=== PATIENT | female | born 1960 | race Caucasian/White ===

== ENCOUNTER 2018-03-21 07:30 | Observation (INO) ==
[2018-03-21] MEDS ORDERED: *HR* HYDROcodone/Acet 5/325 mg TABLET PO ONE (07:48)
--- NOTE | 2018-03-21 07:52 | Emergency Department Note ---
Disposition Clinical Impression: Abnormal EKG Back pain Qualifiers: Back pain location: back pain in unspecified location Chronicity: acute Back pain laterality: unspecified Qualified Code(s): M54.9 - Dorsalgia, unspecified Chest pain Qualifiers: Chest pain type: unspecified Qualified Code(s): R07.9 - Chest pain, unspecified Disposition: Admitted As Inpatient Condition: Good Referrals: Demi Booker, [employer] [Primary Care Provider] - Forms: ED Satisfaction Letter Time of Disposition: 11:03 Back Pain HPI - General Chief Complaint: ED Back Pain/Injury Stated Complaint: Back Spasms Time Seen by Provider: 03/21/18 07:36 Source: patient Limitations: no limitations Nursing Notes Reviewed: Yes Vital Signs Reviewed: Yes - History of Present Illness HPI Narrative: Nontoxic-appearing 57-year-old female presents for evaluation of thoracic "back spasms" of the bilateral paraspinal musculature. This is been going on for several days. He in fact, she visited this facility on 03/17/10 however left prior to being seen due to prolonged wait times in the waiting room. She is experienced spasms in these locations on multiple occasions in the past. She denies any injury or trauma. She denies any fever, chills, numbness/tingling/ weakness of the extremities, chest pain, shortness of breath, or hemoptysis. She has taken ibuprofen and Tylenol [id number] without relief. She has also tried hot and cold therapies at home, again, without relief. Pt Subjective Complaint: other (Back spasms) Onset (ago): day(s) Duration: gradually worsening Location: thoracic spine Pain Severity: severe Pain Scale: 10 Quality: sharp Radiation: none Improves with: none Worsens with: movement, deep breaths/cough Associated symptoms: Denies: numbness, weakness, fever Treatments prior to arrival: cold therapy, heat therapy, NSAIDS, acetaminophen - Related Data Home Medications Medication Instructions Recorded Confirmed Etodolac [Etodolac] 500 mg PO BID PRN 03/21/18 03/21/18 Ibuprofen [Ibuprofen] 800 mg PO TID PRN 03/21/18 03/21/18 Metformin HCl [Glucophage] 1,000 mg PO BID PRN 03/21/18 03/21/18 Pantoprazole Sodium [Protonix] 40 mg PO DAILY 03/21/18 03/21/18 Terbinafine HCl 250 mg PO BID 03/21/18 03/21/18 Tizanidine HCl 4 mg PO TID 03/21/18 03/21/18 Allergies Allergy/AdvReac Type Severity Reaction Status Date / Time codeine AdvReac Itching Verified 03/21/18 10:11 All systems ED: reviewed and negative except as stated. Constitutional: Denies: fever, chills, weakness, weight change Eyes: Denies: eye pain, eye discharge, vision change ENT ED: Denies: ear pain, throat pain, dental pain, hearing loss, epistaxis, congestion, dysphagia Cardiovascular: Denies: chest pain, palpitations, dyspnea on exertion, edema, syncope Respiratory: Denies: cough, dyspnea, wheezes, hemoptysis, stridor Gastrointestinal: Denies: abdominal pain, nausea, vomiting, diarrhea, constipation, hematemesis, melena, hematochezia Genitourinary: Denies: dysuria, frequency, hematuria, discharge Musculoskeletal: Reports: as per HPI, back pain. Denies: neck pain, arthralgia , myalgia Integumentary: Denies: rash, abrasion, lesions Neurological: Denies: headache, weakness, numbness, paresthesias, confusion, abnormal gait, vertigo Psychiatric: Denies: anxiety, depression, suicidal thoughts, homicidal thoughts , auditory hallucinations, visual hallucinations Endocrine: Denies: fatigue Hematological/Lymphatic: Denies: easy bleeding, easy bruising Allergic/Immunologic: Denies: facial swelling, urticaria Past Medical History - Past Medical History Attestation: Yes The following information was validated with the patient. 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 Absent: nystagmus - ENT ENT exam: mucous membranes moist - Neck Neck exam: Present: normal inspection, full ROM, trachea midline. Absent: tenderness - Chest Chest inspection: Present: normal inspection, symmetric chest wall rise - Extremities Exam Extremities exam: Present: normal inspection, full ROM. Absent: tenderness, pedal edema - Back Exam Back exam: Present: tenderness (Tenderness with palpation of the bilateral thoracic paraspinal musculature), muscle spasm (Palpable spasm of the bilateral paraspinal musculature, thoracic region, left more severe than the right), paraspinal tenderness. Absent: vertebral tenderness - Neurological Exam Neurological exam: Present: alert, oriented X3, normal gait - Expanded Neurological Exam Motor strength - LUE: 5/5 Motor strength - RUE: 5/5 Motor strength - LLE: 5/5 Motor strength - RLE: 5/5 - Psychiatric Psychiatric exam: Present: normal affect, normal mood - Skin Skin exam: Present: warm, dry, intact, normal color. Absent: rash Course Course Narrative: The patient's complaints did seem musculoskeletal upon first examination however an EKG showed new T-wave inversions in leads V2 and V3 when compared to a previous EKG dated from October of this past year. Upon further questioning , the patient stated an exertional component to this thoracic back pain as well as intermittent episodes of nausea. Cardiac workup was initiated. She has a normal troponin. A nitroglycerin challenge revealed complete resolution of her pain after the administration of only a single sublingual nitroglycerin tablet. As such, I will consult with cardiology on-call. The patient will be admitted to the hospital service with cardiology consultation. 1030: I spoke with Dr. Vasquez, on-call cardiology. Dr. Vasquez states the cardiology will consult with the patient in house. He also recommends the administration of a heparin drip by ACS protocol. I discussed this plan with Dr. Sommers, ED attending. Dr. Sommers has had a [id number] evaluation with this patient and agrees with this plan. Dr. Sommers has spoken with Dr. Del Toro, hospitalist on-call who has accepted the patient for admission to the hospital service for further evaluation and ongoing cardiac consultation. - Reevaluation(s) Reevaluation #1: The patient states complete resolution of her thoracic "back spasms" after the administration of a single sublingual nitroglycerin tablet. Time: 10:11 Vital Signs Temperature 98.2 F 03/21/18 07:35 Pulse Rate 88 03/21/18 07:35 Respiratory Rate 12 03/21/18 07:35 Blood Pressure 155/82 03/21/18 07:35 O2 Sat by Pulse Oximetry 99 03/21/18 07:35 Temperature 98.2 F 03/21/18 07:47 Pulse Rate 61 03/21/18 10:21 Respiratory Rate 1 03/21/18 10:21 Blood Pressure 124/81 03/21/18 10:21 O2 Sat by Pulse Oximetry 100 03/21/18 10:21 Oxygen Delivery Oxygen Delivery Room Air Back Pain/Injury - Medical Records Medical records reviewed: Yes I reviewed the patient's medical records. - Lab Data Lab results reviewed: Yes I reviewed the patient's lab results. Lab results narrative: Laboratory Last Values WBC 11.6 K/mcL (4.3-11.1) H 03/21/18 09:11 RBC 4.56 M/mcL (3.82-4.97) 03/21/18 09:11 Hgb 15.1 g/dL (11.5-15.4) 03/21/18 09:11 Hct 42.4 % (35.3-44.9) 03/21/18 09:11 MCV 93.0 fL (83.0-100.0) 03/21/18 09:11 MCH 33.1 pg (28.0-33.3) 03/21/18 09:11 MCHC 35.6 g/dL (31.6-35.5) H 03/21/18 09:11 RDW 12.4 % (11.5-14.5) 03/21/18 09:11 Plt Count 235 K/mcL (140-400) 03/21/18 09:11 MPV 10.9 fL (9.4-12.4) 03/21/18 09:11 Immature Gran % 0.3 % (0-4) 03/21/18 09:11 Seg Neutrophils % 63.8 % 03/21/18 09:11 Lymphocytes % 27.3 % 03/21/18 09:11 Monocytes % 7.7 % 03/21/18 09:11 Eosinophils % 0.3 % 03/21/18 09:11 Basophils % 0.6 % 03/21/18 09:11 Neutrophils # 7.4 K/mcL (1.6-8.9) 03/21/18 09:11 Lymphocytes # 3.2 K/mcL (0.6-4.6) 03/21/18 09:11 Monocytes # 0.9 K/mcL (0.0-1.3) 03/21/18 09:11 Eosinophils # 0.0 K/mcL (0.0-0.6) 03/21/18 09:11 Basophils # 0.1 K/mcL (0.0-0.2) 03/21/18 09:11 PT 12.2 Seconds (9.4-12.1) H 03/21/18 09:11 INR 1.1 03/21/18 09:11 APTT 30.8 Seconds (26.0-36.0) 03/21/18 09:11 Sodium 142 mEq/L (136-145) 03/21/18 09:11 Potassium 3.0 mEq/L (3.5-5.1) L 03/21/18 09:11 Chloride 112 mEq/L (98-107) H 03/21/18 09:11 Carbon Dioxide 22 mEq/L (23-29) L 03/21/18 09:11 BUN 17 mg/dL (6-20) 03/21/18 09:11 Creatinine 0.84 mg/dL (0.60-1.20) 03/21/18 09:11 Est GFR ( Amer) > 60 (> 60) 03/21/18 09:11 Est GFR (Non-Af Amer) > 60 (> 60) 03/21/18 09:11 BUN/Creatinine Ratio 20 (6-26) 03/21/18 09:11 Glucose 123 mg/dL (70-105) H 03/21/18 09:11 Calculated Osmolality 297 (280-300) 03/21/18 09:11 Calcium 9.9 mg/dL (8.6-10.3) 03/21/18 09:11 Troponin I < 0.03 ng/mL (< 0.04) 03/21/18 09:11 Result diagrams: 03/21/18 09:11 03/21/18 09:11 Lab Results 03/21/18 03/21/18 03/21/18 Range/Units 09:11 09:11 09:11 WBC 11.6 H (4.3-11.1) K/mcL RBC 4.56 (3.82-4.97) M/mcL Hgb 15.1 (11.5-15.4) g/dL Hct 42.4 (35.3-44.9) % MCV 93.0 (83.0-100.0) fL MCH 33.1 (28.0-33.3) pg MCHC 35.6 H (31.6-35.5) g/dL RDW 12.4 (11.5-14.5) % Plt Count 235 (140-400) K/mcL MPV 10.9 (9.4-12.4) fL Immature Gran % 0.3 (0-4) % Seg Neutrophils % 63.8 % Lymphocytes % 27.3 % Monocytes % 7.7 % Eosinophils % 0.3 % Basophils % 0.6 % Neutrophils # 7.4 (1.6-8.9) K/mcL Lymphocytes # 3.2 (0.6-4.6) K/mcL Monocytes # 0.9 (0.0-1.3) K/mcL Eosinophils # 0.0 (0.0-0.6) K/mcL Basophils # 0.1 (0.0-0.2) K/mcL PT 12.2 H (9.4-12.1) Seconds INR 1.1 APTT 30.8 (26.0-36.0) Seconds Sodium 142 (136-145) mEq/L Potassium 3.0 L (3.5-5.1) mEq/L Chloride 112 H (98-107) mEq/L Carbon Dioxide 22 L (23-29) mEq/L BUN 17 (6-20) mg/dL Creatinine 0.84 (0.60-1.20) mg/dL Est GFR ( Amer) > 60 (> 60) Est GFR (Non-Af Amer) > 60 (> 60) BUN/Creatinine Ratio 20 (6-26) Glucose 123 H (70-105) mg/dL Calculated Osmolality 297 (280-300) Calcium 9.9 (8.6-10.3) mg/dL Troponin I < 0.03 (< 0.04) ng/mL - Radiology Data Radiology results reviewed: Yes I reviewed the patient's radiology results. Thoracic Spine X-Ray 03/21/18 07:48 IMPRESSION: 1. No acute abnormality involving the thoracic spine. D/ / Tj Kamara MD / Tj Kamara MD Interpreting Provider: Tj Kamara MD Chest X-Ray 03/21/18 09:11 IMPRESSION: No acute cardiopulmonary findings. D/ / Monica Luna MD / Monica Luna MD Interpreting Provider: Monica Luna MD - EKG Data EKG attestation: Yes I reviewed and interpreted this EKG. EKG results narrative: EKG reviewed by Dr. Sommers as well. EKG shows a sinus rhythm with sinus arrhythmia at a rate of 60 bpm. [place] interval 167, QRS duration 87, QT/QTc interval 4/424. No ectopy noted. No ST elevation. Inverted T waves noted in V2 and V3. These are new findings compared to the patient's most recent EKG dated from 11/05/17.
[2018-03-21] MEDS ORDERED: Nitroglycerin 0.4 MG TAB.SUBL SL PRN (09:32)
[2018-03-21 09:39] LABS: Basophils # 0.1 K/mcL (0.0-0.2); Basophils % 0.6 %; Eosinophils % 0.3 %; Hematocrit 42.4 % (35.3-44.9); Hemoglobin 15.1 g/dL (11.5-15.4); Immature Granulocytes % 0.3 % (0-4); Lymphocytes # 3.2 K/mcL (0.6-4.6); Lymphocytes % 27.3 %; Mean Corpuscular HGB Conc 35.6 g/dL (31.6-35.5); Mean Corpuscular Hemoglobin 33.1 pg (28.0-33.3); Mean Platelet Volume 10.9 fL (9.4-12.4); Monocytes # 0.9 K/mcL (0.0-1.3); Monocytes % 7.7 %; Neutrophils # 7.4 K/mcL (1.6-8.9); Platelet Count 235 K/mcL (140-400); Red Blood Count 4.56 M/mcL (3.82-4.97); Red Cell Distribution Width 12.4 % (11.5-14.5); Segmented Neutrophils % 63.8 %
--- NOTE | 2018-03-21 09:46 | Emergency Department Note ---
Disposition Clinical Impression: Abnormal EKG Back pain Qualifiers: Back pain location: back pain in unspecified location Chronicity: acute Back pain laterality: unspecified Qualified Code(s): M54.9 - Dorsalgia, unspecified Chest pain Qualifiers: Chest pain type: unspecified Qualified Code(s): R07.9 - Chest pain, unspecified Disposition: Admitted As Inpatient Condition: Good Referrals: Demi Booker CNP [Primary Care Provider] - Forms: ED Satisfaction Letter General Adult HPI - General Chief complaint: ED Back Pain/Injury Stated complaint: Back Spasms Time Seen by Provider: 03/21/18 07:36 Source: patient Limitations: no limitations - History of Present Illness Pain Scale: 10 - Related Data Home Medications Medication Instructions Recorded Confirmed metFORMIN [Glucophage] 1,000 mg PO BID 08/15/15 11/29/16 Previous Rx's Medication Instructions Recorded Benzonatate [Tessalon] 100 mg PO TID #30 capsule 08/15/15 Cyclobenzaprine [Flexeril] 10 mg PO TID #30 tablet 11/28/16 Naproxen [Naprosyn] 500 mg PO BID PRN #20 tablet 10/13/17 Cyclobenzaprine [Flexeril] 10 mg PO BID #30 tablet 11/05/17 HYDROcodone/Acet 5/325 mg [[place] 1 tab PO Q6H PRN 2 Days #6 tab 11/05/17 5-325 mg] Allergies Allergy/AdvReac Type Severity Reaction Status Date / Time codeine AdvReac Itching Verified 03/17/18 15:39 Constitutional: Denies: fever, chills, weakness, weight change Eyes: Denies: eye pain, eye discharge, vision change ENT ED: Denies: ear pain, throat pain, dental pain, hearing loss, epistaxis, congestion, dysphagia Cardiovascular: Denies: chest pain, palpitations, dyspnea on exertion, edema, syncope Respiratory: Denies: cough, dyspnea, wheezes, hemoptysis, stridor Gastrointestinal: Denies: abdominal pain, nausea, vomiting, diarrhea, constipation, hematemesis, melena, hematochezia Genitourinary: Denies: dysuria, frequency, hematuria, discharge Musculoskeletal: Reports: as per HPI, back pain. Denies: neck pain, arthralgia , myalgia Integumentary: Denies: rash, abrasion, lesions Neurological: Denies: headache, weakness, numbness, paresthesias, confusion, abnormal gait, vertigo Psychiatric: Denies: anxiety, depression, suicidal thoughts, homicidal thoughts , auditory hallucinations, visual hallucinations Endocrine: Denies: fatigue Hematological/Lymphatic: Denies: easy bleeding, easy bruising Allergic/Immunologic: Denies: facial swelling, urticaria Past Medical History - Past Medical History Medical history: Reports: diabetes, GERD, other Surgical history: Reports: non-contributory, , hysterectomy Psychiatric history: Reports: depression REMOTE INPATIENT 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 Patient complaining of left-sided midthoracic back pain which she describes as a dull ache. Patient's pain is worse with exertion. She does notice some tenderness to palpation worse with movements, however, she does describe worse with exertion. She does have associated nausea and has had an episode of vomiting with in the emergency department. EKG has concern for biphasic T-wave in V2 and V3 concerning for while and syndrome. Significant change from previous EKG. Patient will undergo further cardiac workup as well as received aspirin and nitroglycerin. Patient will be discussed with cardiology and admitted for further evaluation. Please see LINDA note for further evaluation. Vital Signs Temperature 98.2 F 03/21/18 07:35 Pulse Rate 88 03/21/18 07:35 Respiratory Rate 12 03/21/18 07:35 Blood Pressure 155/82 03/21/18 07:35 O2 Sat by Pulse Oximetry 99 03/21/18 07:35 Temperature 98.2 F 03/21/18 07:47 Pulse Rate 88 03/21/18 07:47 Respiratory Rate 12 03/21/18 07:47 Blood Pressure 155/82 03/21/18 07:47 O2 Sat by Pulse Oximetry 99 03/21/18 07:47 Oxygen Delivery Oxygen Delivery Room Air Medical Decision Making - Lab Data Result diagrams: 03/21/18 09:11 Lab Results 03/21/18 Range/Units 09:11 WBC 11.6 H (4.3-11.1) K/mcL RBC 4.56 (3.82-4.97) M/mcL Hgb 15.1 (11.5-15.4) g/dL Hct 42.4 (35.3-44.9) % MCV 93.0 (83.0-100.0) fL MCH 33.1 (28.0-33.3) pg MCHC 35.6 H (31.6-35.5) g/dL RDW 12.4 (11.5-14.5) % Plt Count 235 (140-400) K/mcL MPV 10.9 (9.4-12.4) fL Immature Gran % 0.3 (0-4) % Seg Neutrophils % 63.8 % Lymphocytes % 27.3 % Monocytes % 7.7 % Eosinophils % 0.3 % Basophils % 0.6 % Neutrophils # 7.4 (1.6-8.9) K/mcL Lymphocytes # 3.2 (0.6-4.6) K/mcL Monocytes # 0.9 (0.0-1.3) K/mcL Eosinophils # 0.0 (0.0-0.6) K/mcL Basophils # 0.1 (0.0-0.2) K/mcL
[2018-03-21] MEDS: Aspirin 81 MG TAB.CHEW PO STA ×2 (09:49→12:08)
[2018-03-21] MEDS: Ondansetron 4 MG/2 ML VIAL IVP ONE ×2 (09:49→12:08)
[2018-03-21 09:50] LABS: INR 1.1; Prothrombin Time 12.2 Seconds (9.4-12.1)
[2018-03-21 09:52] LABS: Activated Partial Thrombo Time 30.8 Seconds (26.0-36.0)
[2018-03-21 09:59] LABS: BUN/Creatinine Ratio 20 (6-26); Blood Urea Nitrogen 17 mg/dL (6-20); Calcium 9.9 mg/dL (8.6-10.3); Carbon Dioxide 22 mEq/L (23-29); Chloride 112 mEq/L (98-107); Glucose 123 mg/dL (70-105); Osmolality,Calculated 297 (280-300); Sodium 142 mEq/L (136-145); Troponin I < 0.03 ng/mL (< 0.04); eGFR For African Americans > 60 (> 60); eGFR For Non-African Americans > 60 (> 60)
[2018-03-21] MEDS: 0.9 % Sodium Chloride 1,000 ML IVC ONE ×2 (10:16→12:08)
[2018-03-21] MEDS ORDERED: *HR* Heparin 5,000 UNIT/ML VIAL IVP PRN ×2 (10:36)
[2018-03-21] MEDS ORDERED: *HR* Heparin 5,000 UNIT/ML VIAL IVP ONE (10:36)
[2018-03-21] MEDS: Heparin 25,000 UNIT/500 ML D5W 25,000 UNIT/500 ML BAG IVC SCH (11:03)
[2018-03-21] MEDS ORDERED: Acetaminophen 325 MG TABLET PO PRN (11:12)
[2018-03-21] MEDS ORDERED: Naloxone 0.4 MG/ML INJ IVP PRN (11:12)
[2018-03-21] MEDS ORDERED: *HR* HYDROcodone/Acet 5/325 mg TABLET PO PRN (11:12)
--- NOTE | 2018-03-21 11:12 | Internal Med History&Physical ---
Date of Encounter: 03/21/18 Time of Encounter: 11:11 Internal Medicine - H&P: HPI Chief complaint: Back pain Admitted From: Home Plans for Post Hospital Care: Home History of present illness: Ms. Costa is a 57 year old female with medical history of DM, chronic back pain who presented to the ER with complains of low back spasm, said to have been progressive, non-radiating. She denies hx of fall or trauma preceding these symptoms, while she was being worked up in the ER, EKG showed TWI inV2 and V3 new compared to prior EKG). Patient then endorsed hx of nausea and vomiting occasionally. She denies chest pain, SOB, she denies leg swelling, palpitations, dizziness, diaphoresis, she denies changes in bowel or urinary habits She has no neurologic symptoms, no skin rash Admiting trop was negative. ER consulted cardio who recommended heparin infusion Patient is clinically and hemodynamically stable as well as chest pain free at my time o eval She is placed on observation for ACS rule out-she has significant family hx in father , and she has risk factors being a diabetic and tobacco abuser She is full code Past Med Surg Social Fam HX - Past Medical History Medical history: diabetes, GERD, other Psychiatric history: depression - Past Surgical History Surgical History: non-contributory, , hysterectomy - Social History Smoking Status: Current every day smoker Smokeless Tobacco Status: No Alcohol use: none Drug use: none Internal Medicine - H&P: Meds Etodolac [Etodolac] 500 mg PO BID PRN 03/21/18 [History] Ibuprofen [Ibuprofen] 800 mg PO TID PRN 03/21/18 [History] Metformin HCl [Glucophage] 1,000 mg PO BID PRN 03/21/18 [History] Pantoprazole Sodium [Protonix] 40 mg PO DAILY 03/21/18 [History] Terbinafine HCl 250 mg PO BID 03/21/18 [History] Tizanidine HCl 4 mg PO TID 03/21/18 [History] 3 Allergy/AdvReac Type Severity Reaction Status Date / Time codeine AdvReac Itching Verified 03/21/18 10:11 All Systems PM: A 10-system review of systems was performed and is negative for pertinent findings except as documented above in the HPI. - Constitutional Constitutional: no chills, no fever(s), no night sweats - EENT Eyes: no change in vision, no discharge, no pain, no photophobia Ears: no ear discharge, no ear pain, no tinnitus Nose, mouth and throat: no dysphagia, no nasal discharge, no neck pain, no sore throat - Cardiovascular Cardiovascular ROS IM: as per HPI - Respiratory Respiratory: no cough, no dyspnea, no wheezing, no excessive phlegm production - Gastrointestinal Gastrointestinal: no abdominal pain, no diarrhea, no hematemesis, no hematochezia, no melena, no nausea, no vomiting - Genitourinary Genitourinary: no change in urinary stream, no dysuria, no flank pain, no hematuria - Musculoskeletal Musculoskeletal ROS IM: as per HPI, no numbness, no tingling - Integumentary Integumentary IM: no rash, no unusual bruising - Neurological Neurological ROS: no confusion, no convulsions, no focal weakness, no numbness, no tingling, no tremor(s) - Constitutional Vitals: Temp Pulse Resp BP Pulse Ox 98.2 F 61 1 124/81 100 03/21/18 07:47 03/21/18 10:21 03/21/18 10:21 03/21/18 10:21 03/21/18 10:21 General appearance: Present: A&O X 3, pleasant, no acute distress - Head Head exam: Present: atraumatic, normocephalic - Eye Eye exam: Present: PERRL, conjuntiva pink, sclera anicteric Pupils: Present: PERRL - Neck Neck exam general surgery: Present: supple, trachea midline. Absent: lymphadenopathy - Respiratory Respiratory exam: Present: CTAB. Absent: accessory muscle use, rales, rhonchi, wheezes - Cardiovascular Cardiovascular exam: Present: RRR, +S1, +S2. Absent: diastolic murmur, gallop, rubs, systolic murmur - GI/Abdominal GI/Abdominal exam: Present: normal bowel sounds, soft, no peritoneal signs. Absent: distended, tenderness - Extremities Exam Extremities exam: Present: warm, radial pulses palpable and symmetrical. Absent : calf tenderness, cyanotic, pedal edema - Neurological Exam Neurological exam: Present: alert, CN II-XII intact, oriented X3, no focal deficits. Absent: pronater drift, facial droop, speech deficit - Skin Skin exam: Present: dry, intact Internal Med - H&P Results - Labs CBC & Chem 7: 03/21/18 09:11 03/21/18 09:11 Labs: Short CBC 03/21/18 Range/Units 09:11 WBC 11.6 H (4.3-11.1) K/mcL Hgb 15.1 (11.5-15.4) g/dL Hct 42.4 (35.3-44.9) % Plt Count 235 (140-400) K/mcL Neutrophils # 7.4 (1.6-8.9) K/mcL BMP 03/21/18 09:11 Sodium 142 Potassium 3.0 L Chloride 112 H Carbon Dioxide 22 L BUN 17 Creatinine 0.84 Glucose 123 H Calcium 9.9 Cardiac Enzymes 03/21/18 Range/Units 09:11 Troponin I < 0.03 (< 0.04) ng/mL - Impressions ITS Impressions Thoracic Spine X-Ray 03/21/18 07:48 IMPRESSION: 1. No acute abnormality involving the thoracic spine. D/ / Tj Kamara MD / Tj Kamara MD Interpreting Provider: Tj Kamara MD Chest X-Ray 03/21/18 09:11 IMPRESSION: No acute cardiopulmonary findings. D/ / Monica Luna MD / Monica Luna MD Interpreting Provider: Monica Luna MD - Assessment and plan (1) Abnormal EKG Current Visit: Yes Status: Acute Assessment and plan: TWI in V2 and V3 Compared to prior EKG is new, but onset unknown Patient did not have chest pain, no jaw pain, no angina equivalet She did have back pain which resolved with nitro Per cardiology, patient was started on heparin in ER Continue same Continue ASA, add lipitor, check A1C and lipid panel Follow cardio recommendations (2) Chest pain Current Visit: Yes Status: Acute Assessment and plan: as above Qualifiers: Chest pain type: unspecified Qualified Code(s): R07.9 - Chest pain, unspecified (3) Diabetes Current Visit: Yes Status: Chronic Assessment and plan: Hold metformin Check A1C FS ACHS Sliding scale insulin Qualifiers: Diabetes mellitus type: type 2 Diabetes 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
[2018-03-21] MEDS ORDERED: Adenosine 90 MG/30 ML MLS IV ONE (11:36)
[2018-03-21] MEDS ORDERED: *HR* Dextrose 50 % in Water (Syg) 50 ML SYRINGE IVP PRN (12:13)
[2018-03-21] MEDS ORDERED: D5% in Water 1,000 ML IVC PRN (12:13)
[2018-03-21] MEDS ORDERED: Dextrose Gel 15 GM/37.5 ML TUBE PO PRN ×2 (12:13)
[2018-03-21] MEDS: *HR* OxyCODONE Immed Rel 5 MG TABLET PO PRN ×2 (13:05→21:18)
--- NOTE | 2018-03-21 13:31 | Cardiology Consult Note ---
Date of Encounter: 03/21/18 Time of Encounter: 13:29 Assessment and Plan (1) Unstable angina Current Visit: Yes Status: Acute Cor presentation with right infrascapular discomfort relieved with nitroglycerin in a long-term diabetic with a strong family history of coronary artery disease. She has biphasic flipped T waves in precordial leads. Benefits and alternatives were discussed patient and she agrees to proceed with a left heart catheter. Her symptoms are atypical however she has had episodes of diaphoresis nausea and vomiting over the last few days Discussion w patient/family: The assessment and plan as outlined above was discussed with the patient and/or family members who expressed understanding and agreement. All questions were answered. Thank you for involving us in the care of your patient. Please call with any questions. History of Present Illness Consult date: 03/21/18 Consult reason: abnormal ekg Chief complaint: upper back pain History of present illness: Ms. Costa is a 57 year old female diabetic, smoker with family history of coronary artery disease presents due to back spasms. She describes an as right infrascapular nonradiating relieved with nitroglycerin. Patient is a long- standing diabetic who over the last few weeks has been having episodes of nausea vomiting and diaphoresis. Found to have biphasic and flipped T waves V4 through V6. She will cardiac markers are unremarkable and no previous history of coronary artery disease or cardiac workup. Due to her long-standing history of diabetes we have discussed the possibility of a left heart cath. Risks benefits and alternatives were discussed with her in detail and she agrees to proceed. Past Med Surg Social Fam HX - Past Medical History Medical history: diabetes, GERD, other Psychiatric history: depression - Past Surgical History Surgical History: non-contributory, , hysterectomy - Social History Smoking Status: Current every day smoker Packs per day: 0.5 Smokeless Tobacco Status: No Alcohol use: none Drug use: none - Family History Mother Hx Family Cardiac Disorders: Yes Hx Family Endocrine Disorder: Yes (DM) Father Hx Family Cardiac Disorders: Yes Hx Family Endocrine Disorder: Yes (DM) Medications and Allergies Etodolac [Etodolac] 500 mg PO BID PRN 03/21/18 [History] Ibuprofen [Ibuprofen] 800 mg PO TID PRN 03/21/18 [History] Metformin HCl [Glucophage] 1,000 mg PO BID PRN 03/21/18 [History] Pantoprazole Sodium [Protonix] 40 mg PO DAILY 03/21/18 [History] Terbinafine HCl 250 mg PO BID 03/21/18 [History] Tizanidine HCl 4 mg PO TID 03/21/18 [History] 3 Allergy/AdvReac Type Severity Reaction Status Date / Time codeine AdvReac Itching Verified 03/21/18 10:11 All Systems Review: The remainder of the systems were reviewed and are negative Physical Examination Vital Signs, Last 4 Hours Temp Pulse Resp BP Pulse Ox 03/21/18 12:32 98.2 F 65 16 139/73 100 03/21/18 12:13 16 138/89 General: Conversant, No Apparent Distress HEENT: Atraumatic, Normocephaly, Mucus Membranes Moist Neck: No JVD, Normal carotid pulses Cardiac: Reg Rate and Rhythm, Normal S1 and S2, No Murmur Lungs: Normal Breath Sounds, No Wheeze, Rales, Rhonchi Neuro: Alert and responsive, No focal deficits noted Abdomen: Soft, Non-Tender Skin: No rashes noted on visualized skin Musculoskeletal: No Chest Wall Tenderness Extremities: No Clubbing, No Cyanosis, No Edema, Normal Pulses Results 03/21/18 09:11 03/21/18 09:11 Consult Discharge Plan - Plan Referrals: Demi Booker CNP [Primary Care Provider] -
--- NOTE | 2018-03-21 14:48 | Electrocardiograph Report ---
[employer] Test Date: 2018-03-21 Pat Name: Donovan Costa Department: 103 Room: 3B34 Gender: F Clinic Nurse: : [id number] Requested By: Jorge Castillo Order Number: [id number] Reading MD: Deniz Jimenez Measurements Intervals [place] Rate: 64 P: 59 SC: 167 QRS: 43 QRSD: 87 T: 52 QT: 414 QTc: 424 Interpretive Statements SINUS RHYTHM WITH SINUS ARRHYTHMIA MODERATE T-WAVE ABNORMALITY, CONSIDER ANTERIOR ISCHEMIA [-0.1+ mV T WAVE IN V3/V4] Electronically Signed On 03-21-2018 14:46:40 EDT by Deniz Jimenez
[2018-03-21] MEDS: Insulin LISPRO 300 UNITS/3 ML VIAL SQ SCH (18:02)
[2018-03-21] MEDS ORDERED: Insulin LISPRO 300 UNITS/3 ML VIAL SQ SCH (21:00)
[2018-03-21] MEDS ORDERED: Melatonin 3 MG TABLET PO PRN (21:26)
[2018-03-22 01:12] LABS: Basophils # 0.1 K/mcL (0.0-0.2); Basophils % 0.7 %; Eosinophils # 0.3 K/mcL (0.0-0.6); Eosinophils % 2.4 %; Hematocrit 36.7 % (35.3-44.9); Immature Granulocytes % 0.2 % (0-4); Lymphocytes # 6.1 K/mcL (0.6-4.6); Lymphocytes % 50.7 %; Mean Corpuscular HGB Conc 35.4 g/dL (31.6-35.5); Mean Corpuscular Hemoglobin 33.3 pg (28.0-33.3); Mean Corpuscular Volume 94.1 fL (83.0-100.0); Mean Platelet Volume 11.3 fL (9.4-12.4); Monocytes % 7.9 %; Neutrophils # 4.6 K/mcL (1.6-8.9); Platelet Count 184 K/mcL (140-400); Red Cell Distribution Width 12.6 % (11.5-14.5); Segmented Neutrophils % 38.1 %
[2018-03-22 01:36] LABS: Chol/HDL Ratio 3.9 (0-4.9)
[2018-03-22] MEDS: *HR* OxyCODONE Immed Rel 5 MG TABLET PO PRN (07:10)
[2018-03-22 08:35] LABS: Estimated Average Glucose 126 mg/dl
[2018-03-22] MEDS: Insulin LISPRO 300 UNITS/3 ML VIAL SQ SCH ×2 (08:57→13:14)
[2018-03-22] MEDS ORDERED: Aspirin Enteric Coated 81 MG Tablet PO SCH (09:00)
[2018-03-22 09:44] LABS: BUN/Creatinine Ratio 18 (6-26); Blood Urea Nitrogen 15 mg/dL (6-20); Calcium 9.1 mg/dL (8.6-10.3); Carbon Dioxide 23 mEq/L (23-29); Chloride 113 mEq/L (98-107); Glucose 127 mg/dL (70-105); Osmolality,Calculated 294 (280-300); Potassium 3.5 mEq/L (3.5-5.1); Sodium 141 mEq/L (136-145); eGFR For African Americans > 60 (> 60); eGFR For Non-African Americans > 60 (> 60)
[2018-03-22] MEDS ORDERED: ISOVUE-370 200 ML INFUS..BTL IV ONE ×2 (10:05→12:16)
[2018-03-22] MEDS ORDERED: Heparin 1,000 UNITS/500 mL 500 ML ONE (10:05)
[2018-03-22] MEDS ORDERED: *HR* Heparin 10,000 UNIT/10 ML VIAL ONE (10:05)
[2018-03-22] MEDS ORDERED: 0.9 % Sodium Chloride 1,000 ML ONE ×2 (10:05→10:12)
[2018-03-22] MEDS ORDERED: Nitroglycerin 1,000 MCG/10 ML VIAL IV ONE (10:06)
[2018-03-22] MEDS ORDERED: Verapamil 5 MG/2 ML VIAL ONE (10:15)
--- NOTE | 2018-03-22 10:26 | Internal Med Progress Note ---
Date of Encounter: 03/22/18 Time of Encounter: 10:18 - Assessment and plan (1) Back pain Current Visit: Yes Status: Acute Assessment and plan: has chronic back pain. Does not follow with pain management. Presented with worsening mid back pain with associated spasms; worse than baseline. Thoracic x -ray unremarkable. Symptoms improved with PRN Alpine and Flexeril. Advised patient we will prescribe 3 days Rx of Alpine and Flexeril. Recommend she follows up with PCP for pain management referral Qualifiers: Back pain location: back pain in unspecified location Chronicity: acute Back pain laterality: bilateral Qualified Code(s): M54.9 - Dorsalgia, unspecified (2) Abnormal EKG Current Visit: Yes Status: Acute Assessment and plan: Incidental finding; EKG showed T wave inversion in leads V2 and V3 which are new when compared to prior EKG. Asymptomatic, denied chest pain. No anginal equivalent. Evaluated by cardiology who recommended LHC. Further recommendations pending results of left heart catheterization. Hgb A1c 6%, LDL 101. Cont ASA, statin. Hep gtt (3) Diabetes Current Visit: Yes Status: Chronic Assessment and plan: per hx. Hgb A1c 6%. Holding home metformin. SSI. Monitor blood sugar and titrate PRN Qualifiers: Diabetes mellitus type: type 2 Diabetes mellitus fdc insulin use: without fdc use Diabetes mellitus complication status: without complication Qualified Code(s): E11.9 - Type 2 diabetes mellitus without complications (4) Tobacco abuse Current Visit: Yes Status: Chronic Assessment and plan: current smoker; cessation advised - Time Spent With Patient Total time spent is greater than 50% in coordination of care (as documented) at patient's floor/unit and/or counseling patient: - Subjective Interval history: Seen and examined at bedside. Patient is new to me, information obtained from chart review and patient report. Overall says she feels better. Still having some right-sided back pain that radiates to the left but significantly improved and feels she is back to baseline. Chest pain, no shortness of breath. She is aware of plan for left heart catheterization later on today. - Constitutional Vitals: Temp Pulse Resp BP Pulse Ox 98.7 F 50 19 125/73 99 03/22/18 07:24 03/22/18 07:24 03/22/18 07:24 03/22/18 07:24 03/22/18 07:24 General appearance: Present: A&O X 3, pleasant, no acute distress - Head Head exam: Present: atraumatic, normocephalic - Eye Eye exam: Present: PERRL, conjuntiva pink, sclera anicteric Pupils: Present: PERRL - Neck Neck exam general surgery: Present: supple, trachea midline. Absent: lymphadenopathy - Respiratory Respiratory exam: Present: CTAB. Absent: accessory muscle use, rales, rhonchi, wheezes - Cardiovascular Cardiovascular exam: Present: RRR, +S1, +S2. Absent: diastolic murmur, gallop, rubs, systolic murmur - GI/Abdominal GI/Abdominal exam: Present: normal bowel sounds, soft, no peritoneal signs. Absent: distended, tenderness - Extremities Exam Extremities exam: Present: warm, radial pulses palpable and symmetrical. Absent : calf tenderness, cyanotic, pedal edema - Neurological Exam Neurological exam: Present: CN II-XII intact, oriented X3, no focal deficits. Absent: pronater drift, facial droop, speech deficit - Skin Skin exam: Present: dry, intact Internal Medicine: Result - Labs CBC & Chem 7: 03/22/18 00:32 03/22/18 08:46 Labs: Short CBC 03/22/18 Range/Units 00:32 WBC 12.0 H (4.3-11.1) K/mcL Hgb 13.0 D (11.5-15.4) g/dL Hct 36.7 (35.3-44.9) % Plt Count 184 (140-400) K/mcL Neutrophils # 4.6 (1.6-8.9) K/mcL BMP 03/22/18 08:46 Sodium 141 Potassium 3.5 Chloride 113 H Carbon Dioxide 23 BUN 15 Creatinine 0.84 Glucose 127 H Calcium 9.1 Cardiac Enzymes 03/21/18 Range/Units 17:57 Troponin I < 0.03 (< 0.04) ng/mL - ABG Interpretation ABG results: PT/INR, D-dimer PT 12.2 Seconds (9.4-12.1) H 03/21/18 09:11 Consult Discharge Plan - Plan Referrals: Demi Booker [facility] [Primary Care Provider] -
[2018-03-22] MEDS ORDERED: *HR* Midazolam HCl 5 MG/5 ML VIAL IVP ONE (11:18)
[2018-03-22] MEDS ORDERED: *HR* FentaNYL (PF) 100 MCG/2 ML VIAL ONE (11:18)
--- NOTE | 2018-03-22 11:18 | Pre-Sedation Evaluation ---
Pre-sedation evaluation - Pre-sedation checklist Date of procedure: 03/22/18 Procedure: [facility] Recent Vitals: Last Vital Signs Temp 98.7 F 03/22/18 07:24 Pulse 50 03/22/18 07:24 Resp 19 03/22/18 07:24 BP 125/73 03/22/18 07:24 Pulse Ox 99 03/22/18 07:24 H&P (including ROS) documented in medical record: Yes Previous reaction to sedatives/anesthetics: No Dietary Status: NPO after Midnight Dentition: No loose teeth or bridges ASA Classification *see protocol: CLASS II-Mild systemic disease Plan of Care: Pt appropriate candidate for procedure/moderate/conscious sedation , Risks/benefits of procedure/sedation discussed w/ patient/family Cardiac Registry (Cardio Only) - Functional Capacity Functional Capacity: >=4 METS with symptoms - Clincal Frailty Scale Clinical Frailty Scale: Managing Well
[2018-03-22] MEDS ORDERED: Nitroglycerin Spray 4.9 GM BOTTLE ONE (11:34)
[2018-03-22] MEDS ORDERED: Tirofiban 12.5 MG/250ML 12.5 MG/250 ML BAG ONE (11:57)
[2018-03-22] MEDS ORDERED: *HR* Ticagrelor 90 MG TABLET ONE (12:18)
--- NOTE | 2018-03-22 12:47 | Invasive Diagnostic Lab Proc ---
Name: Donovan Costa Date of Study: 03/22/2018 Date: 1960 Ht: 64.1in Medical Record#: [id number] Age: 57 Wt: 139.11lb Gender: Female BSA: 1.68 Order #: [id number] BMI: 23.81 Physicians Procedure Physician: Denny [facility]izarro [facility], [facility] Referring MD: Referring MD: Staff Name Position Time In Urvashi Lorenzana RT (R) Monitor 11:10 AM Lucy Lorenzanaian RT (R) Scrub 11:10 AM Gage Lyons RN Coal Drier Operator 11:10 AM Indications Indication Unstable Angina Procedures Performed Procedure L HRT ARTERY/VENTRICLE ANGIO IV Doppler BLD Flow 1st Vessel IV Doppler BLD Flow Ad'l Vessel PRQ CARD ELIZABETH STENT W/ANGIO 1 VSL Pre-Procedure Checklist Informed consent is complete signed and on chart. H&P is on chart. ID band is on and ID verified with patient. Patient NPO for procedure The procedure was described for the patient and questions were answered. Blood Pressure: 139/73 ECG is on chart. Rhythm: NSR Plan of Care Patient will tolerate the procedure without complications. Adequate level of comfort will be maintained. Hemodynamics will remain stable Patient will recover from procedure without complications. Respiratory function will be maintained. Cardiac rhythm will remain stable. Patient temperature will be maintained. Patient and/or family have verbalized understanding of the procedure. Patient Education Chief Complaint/Reason for Test: Cardiac Cath Developmental Category: Adult (18-64 years) Developmentally Appropriate for Age: Yes Learning Barriers: None Education Needs: Procedure Education Method: Verbal Information Taught: Cardiac Cath Educational Evaluation: Able to repeat information Intravenous Access Time IV Size Location DC'd Fluid/Drip Rate Units RN 03:21 PM 20g 1 /" Patent On Arrival Lt Antecubital 0.9NaCl 25 ml/hr Gage Lyons RN Allergies codeine Vital Signs Time BP (mmHg) HR (bpm) O2 Sat. RR (bpm) LOC 03:21 PM 139 / 73 65 100 % 16 5 = Fully awake and oriented or at pre-proc level 11:11 AM / % 5 = Fully awake and oriented or at pre-proc level 11:11 AM / % 4 = Oriented but drowsy 11:26 AM / % 4 = Oriented but drowsy 11:41 AM / % 4 = Oriented but drowsy 11:56 AM / % 4 = Oriented but drowsy 12:11 PM / % 4 = Oriented but drowsy 11:59 AM 145 / 85 86 99 % 12 12:04 PM 162 / 91 75 100 % 13 12:09 PM 157 / 87 88 100 % 22 12:14 PM 147 / 90 89 97 % 15 12:19 PM 155 / 105 111 100 % 17 12:24 PM 155 / 96 92 100 % 13 11:20 AM 173 / 78 60 100 % 9 11:24 AM 130 / 64 59 100 % 14 11:29 AM 136 / 71 75 99 % 15 11:34 AM 126 / 80 79 100 % 12 11:39 AM 142 / 101 87 100 % 23 11:44 AM 137 / 88 96 97 % 10 11:49 AM 131 / 80 80 99 % 12 11:54 AM 150 / 85 80 98 % 11 Procedural Medications Time Medication Dose Units Method Given By 11:21 AM Oxygen 2 L/min nasal cannula Gage Lyons RN 11:21 AM Versed 2 mg Intravenous Gage Lyons RN 11:21 AM Fentanyl 50 mcg Intravenous Gage Lyons RN 11:33 AM Versed 1 mg Intravenous Gage Lyons RN 11:34 AM Nitroglycerin 400 mcg Sublingual Gage Lyons RN 11:39 AM Lidocaine 2% 0.5 ml Subcutaneous Hilaria Saucedo MD, FACC 11:40 AM Fentanyl 25 mcg Intravenous Gage Lyons RN 11:40 AM Heparin 2000 units Nitroglycerin 200 mcg Verapamil 2.5 mg Intraarterial Hilaria Saucedo MD, FACC 11:52 AM Nitroglycerin 200 mcg Intracoronary Denny Pizarro MD 11:53 AM Adenosine 529 ml/hr Intravenous Gage Lyons RN 11:54 AM Heparin 1000 units Intravenous Gage Lyons RN 12:03 PM Aggrastat Bolus: 33 ml Intravenous Gage Lyons RN 12:04 PM Aggrastat 12.5mg/250ml 12 ml Intravenous Gage Lyons RN 12:10 PM Nitroglycerin 200 mcg Intracoronary Denny Pizarro MD 12:19 PM Brilinta 180 mg Orally Gage Lyons RN ASA Classification: CLASS II- Mild systemic disease (i.e. well-controlled diabetes, hypertension, asthma, cigarette smoking) [place] Score Preprocedure Postprocedure Activity 2- Moves 4 extremities sustained head lift Activity 2- Moves 4 extremities sustained head lift Circulation 2- SBP +/= 20 points of pre-anesthetic level Circulation 2- SBP +/= 20 points of pre-anesthetic level Consciousness 2- Awake and alert oriented x 3 Consciousness 2- Awake and alert oriented x 3 O2 Saturation 2- Able to maintain O2 satruation of 92% on room air O2 Saturation 2- Able to maintain O2 satruation of 92% on room air Respiratory 2- Able to deep breathe and cough well Respiratory 2- Able to deep breathe and cough well Total Score 10 Total Score 10 Contrast Agent: Isovue Diagnostic Contrast: 133 ml Total Contrast: 133 ml Fluoro Dose: 41 mGy Procedure Log Time Note Enter By 11:10 AM Pt arrived to slab lifting engineer 1 at 11:10 twilson 11:10 AM Urvashi Lorenzana RT (R) Position: Monitor Time in: 11:10 twilson 11:10 AM Didier Lorenzana RT (R) Position: Scrub Time in: 11:10 twilson 11:10 AM Gage Lyons RN Position: Coal Drier Operator Time in: 11:10 twilson 11:10 AM Patient charges- Angio tray pack, Navilyst 3mm J, Pulse Oximetry and ACIST tubing and transducer twilson 11:11 AM Time: 11:11 Patient comfortable and pain free: Yes twilson 11:11 AM Time: 11:11LOC: 5 = Fully awake and oriented or at pre-proc level twilson 11:14 AM Physician arrived 11:14 twilson 11:14 AM Meet and greet completed twilson 11:14 AM Sign in performed according to hospital policy. twilson 11:14 AM Procedure start 11:14 twilson 11:14 AM CathStat 11:14 AM [ Start or Stop Vital ] 11:18 AM Vitals capture started with the following parameters, Patient=Adult, Interval=5 min, Initial Cdekmkwy=655 mmHg, Deflation Rate=3 mmHg, Cuff placed on Right Arm 11:20 AM HR=60 bpm, XZBT=922/78 mmhg, ZoD4=030.0 %, Resp=9 B/min 11:21 AM Hair removed from procedure site in procedure lab using clippers. Bilateral groin prepped with Chloraprep by Urvashi Lorenzana (R), then patient was draped. Skin intact. twilson 11:21 AM Hair removed from procedure site in procedure lab using clippers. Right wrist prepped with Chloraprep by [place], Urvashi RT (R), then patient was draped. Skin intact. twilson 11: AM Time: 11: Oxygen on at 2 L/min per nasal cannula [facility] : AM Time: : Versed 2 mg Intravenous Given by Gage Lyons RN [facility] 11: AM Time: : Fentanyl 50 mcg Intravenous Given by Gage Lyons RN [facility] 11: AM Recorded ECG: HR=76 Condition=Condition 1 11: AM Pressure channel 1 zeroed. 11: AM HR=59 bpm, BBJC=497/64 mmhg, BgZ7=986.0 %, Resp=14 B/min 11: AM Time: 11:11 Patient comfortable and pain free: Yes twilson : AM Time: 11:11LOC: 4 = Oriented but drowsy twilson : AM ASA Class CLASS II- Mild systemic disease (i.e. well-controlled diabetes, hypertension, asthma, cigarette smoking) twilson 11:29 AM HR=75 bpm, YWVF=187/71 mmhg, SpO2=99.0 %, Resp=15 B/min 11: AM Time: 11:33 Versed 1 mg Intravenous Given by G[facility]ons [facility] 11:34 AM HR=79 bpm, XDTB=399/80 mmhg, HaE5=977.0 %, Resp=12 B/min 11:35 AM Time: 11:34 Nitroglycerin 400 mcg Sublingual Given by Gage Lyons RN [facility] 11:36 AM Time out performed according to hospital policy twilson :39 AM Time: 11:39 0.5 ml Lidocaine 2% to right radial Subcutaneous Given by Hilaria Saucedo MD, [facility] 11:39 AM Ultrasound utilized for right radial access. twilson 11:39 AM HR=87 bpm, ZCQQ=639/101 mmhg, GtF7=835.0 %, Resp=23 B/min 11:40 AM Access obtained by percutaneous puncture. 4/5Fr 10cm Terumo Glidesheath sheath placed in right Radial artery. [id number] twilson 11:40 AM Time: 11:40 Fentanyl 25 mcg Intravenous Given by Gage Lyons RN [facility] 11:40 AM Time: 11:40 Patient given 2,000 units Heparin, 200 mcg Nitroglycerin, and 2.5 mg Verapamil Intraarterial by Hilaria Saucedo MD, [facility]. This is given to reduce risk of vessel spasm and thrombosis. twilson 11:40 AM 5Fr TIG catheter inserted over the wire [facility] twilson 11:41 AM Time: : Patient comfortable and pain free: Yes twilson 11:41 AM Time: :LOC: 4 = Oriented but drowsy twilson 11:41 AM Wire removed twilson 11:42 AM Recorded Pressure: Ao, UU=084, Condition=Condition 1 (Aorta) Ao 129/101/115 11:42 AM LCA angiography performed in multiple views. twilson 11:44 AM Recorded Pressure: Ao, HR=92, Condition=Condition 1 (Aorta) Ao 129/96/112 11:44 AM RCA angiography performed in multiple views. twilson 11:44 AM HR=96 bpm, YYIP=034/88 mmhg, SpO2=97.0 %, Resp=10 B/min 11:45 AM Recorded Pressure: Ao, HR=92, Condition=Condition 1 (Aorta) Ao 129/92/110 11:45 AM Coronary Dominance: right twilson 11:45 AM Lesion found in Mid RCA. Pre Stenosis: 60 Pre MIGUEL A Flow: twilson 11:45 AM Right Coronary, Right Posterior Descending Arteries with Right Posterolateral and Acute Marginal branches with 60 % stenosis. If graft is supplying this area, 0 % stenosis twilson 11:46 AM Wire reinserted. twilson 11:46 AM Catheter removed twilson 11:47 AM Pressure channel 1 zeroed. 11:47 AM Recorded Pressure: LV, HR=85, Condition=Condition 1 (Left Ventricle) LV 152/6/17 11:47 AM 5Fr Pigtail catheter inserted over the wire [facility] twilson 11:48 AM Recorded Pressure: LV, Ao, HR=94, Condition=Condition 1 (Left Ventricle) LV 174/7/22, (Aorta) Ao 151/83/115 11:48 AM Catheter selectively placed in left ventricle twilson 11:48 AM Wire removed, intact. twilson 11:48 AM Bolus angiogram of left Ventricle complete: 10 ml/sec for a total of 20 mls twilson 11:48 AM Wire reinserted. twilson 11:48 AM Catheter removed twilson 11:49 AM Inflation device was opened. twilson 11:49 AM Preparing to FFR LAD. twilson 11:49 AM HR=80 bpm, OJTQ=505/80 mmhg, SpO2=99.0 %, Resp=12 B/min 11:49 AM 5Fr RBL 3.5 Convey guide catheter was used to cannulate the PCI vessel successfully. reused? No twilson 11:50 AM Drawing an ACT. twilson 11:50 AM Recorded Pressure: Ao, HR=86, Condition=Condition 1 (Aorta) Ao 161/89/121 11:51 AM ACT is 298. twilson 11:51 AM .014 [employer] 190cm guide wire across target lesion- successful. reused? No twilson 11:52 AM Recorded Pressure: Ao, HR=86, Condition=Condition 1 (Aorta) Ao 146/102/123 11:52 AM Asist FFR Catheter advanced to target lesion. twilson 11:52 AM Time: 11:52 Nitroglycerin 200 mcg Intracoronary Given by Denny Pizarro MD twilson 11:54 AM Time: 11:53 Adenosine 529 ml/hr Intravenous Given by Gage Lyons RN Mathews pump twilson 11:54 AM HR=80 bpm, BZNJ=514/85 mmhg, SpO2=98.0 %, Resp=11 B/min 11:55 AM Time: 11:54 Heparin 1000 units Intravenous Given by Gage Lyons RN twilson 11:55 AM Recorded Pressure: Ao, HG=013, Condition=Condition 1 (Aorta) Ao 120/107/114 11:56 AM FFR Measurement: 0.78 twilson 11:56 AM Flow Wire/Catheter removed intact twilson 11:56 AM Time: 11:41 Patient comfortable and pain free: Yes twilson 11:56 AM Time: 11:41LOC: 4 = Oriented but drowsy twilson 11:56 AM Recorded Pressure: Ao, IN=256, Condition=Condition 1 (Aorta) Ao 139/98/118 11:58 AM 3.0 mm x 20 mm Emerge Monorail balloon across target lesion- successful. reused? No twilson 11:58 AM PCI Status Urgent twilson 11:58 AM Adenosine off. twilson 11:59 AM HR=86 bpm, FPRI=091/85 mmhg, SpO2=99.0 %, Resp=12 B/min 12:00 PM Lesion found in Proximal LAD. Pre Stenosis: 60 Pre MIGUEL A Flow: 3: Complete and Brisk Flow/Perfusion twilson 12:00 PM Lesion found in Mid LAD. Pre Stenosis: 50 Pre MIGUEL A Flow: 3: Complete and Brisk Flow/Perfusion twilson 12:01 PM Proximal Left Anterior Descending Coronary Artery with 60% stenosis. If graft is supplying this territory, 0 % stenosis. twilson 12:01 PM Mid/Distal Left Anterior Descending Coronary Artery and diagonal branches with 50% stenosis. If graft is supplying this area, 0 % stenosis twilson 12:01 PM Balloon inflated @ 10 alek for 11 seconds twilson 12:01 PM Balloon catheter removed intact. twilson 12:03 PM 3.0mm x 28mm Xience Alpine ELIZABETH drug-eluting stent across target lesion- successful Lot #[id number] twilson 12:03 PM Time: 12:03 Aggrastat Bolus: 33 ml Intravenous Given by Gage Lyons RN Mathews pump twilson 12:03 PM Stent deployed @ 12 alek for 19 seconds twilson 12:03 PM Stent delivery system removed intact. twilson 12:04 PM Time: 12:04 Aggrastat 12.5mg/250ml 12 ml Intravenous Given by Gage Lyons RN Mathews pump twilson 12:04 PM HR=75 bpm, ROLQ=595/91 mmhg, NyU2=076.0 %, Resp=13 B/min 12:04 PM Recorded Pressure: Ao, HR=78, Condition=Condition 1 (Aorta) Ao 148/89/115 12:05 PM 3.5 mm x 12mm NC Trek Rx balloon across target lesion- successful. reused? No twilson 12:07 PM Balloon inflated @ 16 alek for 22 seconds twilson 12:08 PM Balloon catheter removed intact. twilson 12:08 PM Guide wire removed intact. twilson 12:08 PM Recorded Pressure: Ao, HR=82, Condition=Condition 1 (Aorta) Ao 167/96/128 12:09 PM Wire reinserted. twilson 12:09 PM Guide catheter removed intact. twilson 12:09 PM 5Fr JR 4 Convey guide catheter was used to cannulate the PCI vessel successfully. reused? No twilson 12:09 PM HR=88 bpm, QNWF=891/87 mmhg, LsC5=132.0 %, Resp=22 B/min 12:10 PM Time: 12:10 Nitroglycerin 200 mcg Intracoronary Given by Denny Pizarro MD twilson 12:11 PM Time: 11:56LOC: 4 = Oriented but drowsy twilson 12:11 PM Time: 11:56 Patient comfortable and pain free: Yes twilson 12:13 PM Recorded Pressure: Ao, HR=99, Condition=Condition 1 (Aorta) Ao 149/109/128 12:14 PM HR=89 bpm, OJLQ=728/90 mmhg, SpO2=97.0 %, Resp=15 B/min 12:15 PM [employer] guidewire reinserted. twilson 12:15 PM Adenosine running again for FFR of RCA. twilson 12:16 PM Asist FFR Catheter advanced to target lesion. twilson 12:16 PM Recorded Pressure: Ao, MB=238, Condition=Condition 1 (Aorta) Ao 126/114/120 12:17 PM FFR Measurement: 0.86 RCA. twilson 12:17 PM Adenosine off. twilson 12:17 PM Guidewire removed, intact. twilson 12:17 PM Asist FFR catheter removed, intact. twilson 12:17 PM Recorded Pressure: Ao, FX=901, Condition=Condition 1 (Aorta) Ao 157/113/135 12:17 PM RCA angiography performed in multiple views. twilson 12:18 PM Wire reinserted. twilson 12:18 PM Catheter removed. twilson 12:19 PM Time: 12:19 Brilinta 180 mg Orally Given by Gage Lyons RN twilson 12:19 PM OR=941 bpm, EOMJ=535/105 mmhg, IcL1=569.0 %, Resp=17 B/min 12:20 PM Procedure completed at 12:20 03/22/2018 twilson 12:20 PM Did you address MIGUEL A flow and Dominance? Yes twilson 12:21 PM Sign out completed: Radiation Dose 654.21 mGy, 41.1526 Gy/cm2 Fluoro Time: 9.2 Isovue 370 - 200ml contrast 133 ml given by Denny Pizarro MD, [facility]. Complications: NoneCardiac Rehab Consult needed: YesConfirmed administered medications: Yes twilson 12:21 PM Isovue 370 - 200ml,1 Bottle(s) used. twilson 12:21 PM Arterial sheath pulled, Vasc Band closure device used and was Successful S/N. twilson 12:21 PM 12 ml air in Vasc Band. twilson 12:22 PM Estimated Blood Loss: minimal twilson 12:22 PM Post ECG NSR twilson 12:22 PM Post Blood Pressure 155/105 twilson 12:22 PM 12:22 Post Pulses Bilateral radial 2+ twilson 12:22 PM Information taught Cardiac Cath, PCI, IVUS/Flowire, and Vasc Band twilson 12:22 PM Education needs Procedure, Plan of Care, and Responsibilities of Patient in Care twilson 12:22 PM Learning barriers :None twilson 12:22 PM Education Methods Verbal twilson 12:22 PM Education evaluation Able to repeat information twilson 12:23 PM Site status No bleeding/hematoma - Rt Wrist as reported by Didier Lorenzana RT (R) at 12:22 twilson 12:23 PM Plavix, Effient or Brilinta given Yes twilson 12:23 PM Delay to floor No twilson 12:23 PM Family placed in consult room. twilson 12:24 PM HR=92 bpm, CAHY=072/96 mmhg, XyJ4=492.0 %, Resp=13 B/min 12:26 PM Time: 12:11 Patient comfortable and pain free: Yes twilson 12:26 PM Time: 12:11LOC: 4 = Oriented but drowsy twilson 12:30 PM Vitals capture stopped. 12:36 PM Report given to Kiley MONTGOMERY Pt taken to 3B Room #34. 12:35 twilson 12:37 PM Patient out of room: 12:37 twilson Complications Complication None Hemodynamics Pressures Site Systolic/A Wave Diastolic/V Wave Mean AO 129 101 115 AO 129 96 112 AO 129 92 110 LV 152 6 17 LV 174 7 22 AO 151 83 115 AO 161 89 121 AO 146 102 123 AO 120 107 114 AO 139 98 118 AO 148 89 115 AO 167 96 128 AO 149 109 128 AO 126 114 120 AO 157 113 135 Post Procedure Information Blood Pressure: 155/105 mmHg Rhythm: NSR Post procedural instructions were given Closure Device Time Device Success/Fail 03/22/2018 12:23:00 PM Mechanical Compression Successful Site Checks Time Location Status Staff Sheath In? Note 12:22 PM Rt Wrist No bleeding/hematoma Didier Lorenzana RT (R) Pulses Time Site Pre-Procedure Post-Procedure Note 03/22/2018 11:28:00 AM Bilateral radial 2+ 12:22:00 PM Bilateral radial 2+ Updated by RT Emanuel (R) on 03/22/2018 12:39:34 PM electronically signed on 03/22/2018 12:40:19 PM with status of Final
[2018-03-22] MEDS: Heparin 25,000 UNIT/500 ML D5W 25,000 UNIT/500 ML BAG IVC SCH (13:15)
--- NOTE | 2018-03-22 15:01 | Discharge Summary ---
- NOTES TO OUTPATIENT PROVIDER Notes to Outpatient Provider: Recommend follow-up within 1-2 weeks. Also recommend outpatient pain management referral Orders not resulted at time of discharge: Pending orders 03/21/18 11:53 CL Cardiac Catheterization [CL] Routine 03/22/18 17:00 Creatinine Routine Hemoglobin and Hematocrit [HEME] Timed Platelet Count [HEME] Routine EKG [ECG 12 lead ECG] [ECG] Routine Date of Encounter: 03/22/18 Time of Encounter: 14:59 - Discharge Diagnosis (1) Back pain Priority: Primary Status: Acute Qualifiers: Back pain location: back pain in unspecified location Chronicity: acute Back pain laterality: bilateral Qualified Code(s): M54.9 - Dorsalgia, unspecified (2) Abnormal EKG Priority: Primary Status: Acute (3) Diabetes Priority: Secondary Status: Chronic Qualifiers: Diabetes mellitus type: type 2 Diabetes mellitus longterm insulin use: without timber sizer use Diabetes mellitus complication status: without complication Qualified Code(s): E11.9 - Type 2 diabetes mellitus without complications (4) Tobacco abuse Priority: Secondary Status: Chronic (5) CAD (coronary artery disease) Status: Acute Hospital course: Ms. Costa is a 57 year old female chronic back pain and tobacco use who presented to [facility] on 03/21/2018 with complaints of worsening back pain and back spasms. She was found to have EKG changes and was placed in observation status for ACS workup. She was evaluated by cardiology who recommended left heart catheterization. She underwent LHC on 03/22/2018 - Time Spent with Patient Total time spent providing and/or coordinating discharge services: - Discharge Medications Prescriptions: HYDROcodone/Acet 5/325 mg [Altheimer 5-325 mg] 1 tab PO Q6HR PRN 4 Days #16 tablet PRN Reason: Moderate Pain Aspirin Enteric Coated [Aspirin EC] 81 mg PO DAILY #30 tablet. Atorvastatin [Lipitor] 40 mg PO HS #30 tablet Ticagrelor [Brilinta] 90 mg PO BID #60 tablet Home Medications: Etodolac 500 mg PO BID PRN 03/21/18 [History] Ibuprofen 800 mg PO TID PRN 03/21/18 [History] Metformin HCl [Glucophage] 1,000 mg PO BID PRN 03/21/18 [History] Pantoprazole Sodium [Protonix] 40 mg PO DAILY 03/21/18 [History] Terbinafine HCl 250 mg PO BID 03/21/18 [History] Tizanidine HCl 4 mg PO TID 03/21/18 [History] Aspirin Enteric Coated [Aspirin EC] 81 mg PO DAILY #30 tablet. 03/22/18 [Rx] Atorvastatin [Lipitor] 40 mg PO HS #30 tablet 03/22/18 [Rx] HYDROcodone/Acet 5/325 mg [Altheimer 5-325 mg] 1 tab PO Q6HR PRN 4 Days #16 tablet 03/22/18 [Rx] Ticagrelor [Brilinta] 90 mg PO BID #60 tablet 03/22/18 [Rx] Allergies/Adverse Reactions: 3 Allergy/AdvReac Type Severity Reaction Status Date / Time codeine AdvReac Itching Verified 03/21/18 10:11 Date of admission: 03/21/18 11:35 Primary care physician: Demi Booker CNP Discharging clinician: Imelda Haely Anticipated date of discharge: 03/22/18 - Constitutional Vitals: Temp Pulse Resp BP Pulse Ox 98.0 F 58 14 148/80 98 03/22/18 13:54 03/22/18 14:25 03/22/18 14:25 03/22/18 14:25 03/22/18 14:25 General appearance: Present: A&O X 3, pleasant, no acute distress - Patient Status Disposition: Home, Self-Care Condition: Good Functional capacity at discharge: independent ambulation Overall status at discharge: patient is back to baseline - Discharge Instructions Instructions: Coronary Artery Disease (DC), Aspirin (By mouth), Ticagrelor (By mouth), Atorvastatin (By mouth), How to Stop Smoking (DC) Follow Up With: Demi Booker CNP [Primary Care Provider] - (Please call for follow-up appointment within 1 week) - Diet and Activity Activity: increase activity as tolerated Diet: low fat, low cholesterol, low salt diet
[2018-03-22 16:14] VITALS: BP 145/78
[2018-03-22] MEDS ORDERED: Tirofiban 12.5 MG/250ML 12.5 MG/250 ML BAG IVC SCH (16:45)
[2018-03-22 17:46] LABS: Hematocrit 39.2 % (35.3-44.9); Hemoglobin 13.5 g/dL (11.5-15.4)
[2018-03-22 17:52] LABS: eGFR For African Americans > 60 (> 60); eGFR For Non-African Americans > 60 (> 60)
[2018-03-22] MEDS ORDERED: *HR* Ticagrelor 90 MG TABLET PO SCH (21:00)
--- NOTE | 2018-03-23 07:14 | Electrocardiograph Report ---
[address] [place], [place] [address] Test Date: 2018-03-22 Pat Name: Donovan Costa Department: 113 Room: 3B34 Gender: F Loan Review Analyst: : 1960 Requested By: Jamie Nicole Order Number: [id number] Reading MD: Denny Pizarro Measurements Intervals Debary Rate: 55 P: 158 AK: 156 QRS: 138 QRSD: 90 T: 130 QT: 422 QTc: 412 Interpretive Statements SINUS BRADYCARDIA LEFT POSTERIOR FASCICULAR BLOCK Electronically Signed On 03-23-2018 7:12:16 EDT by Denny Pizarro
== END 2018-03-22 18:45 | disposition home or self-care (01) ==
LOC: EMEROO 07:30 → 3BNU 07:30
PROVIDERS: ADMIT Internal Medicine; ATTEND Internal Medicine